=== PATIENT | female | born 1985 | race Caucasian/White ===

== ENCOUNTER 2017-05-25 01:09 | Emergency (ER) | payer OTHER ==
[2017-05-25 01:22] VITALS: BP 128/77; PULSE 69; RESP 18; TEMP 97.9; O2SAT 100
== END 2017-05-25 01:35 | disposition home or self-care (01) | DRG 951 ==
LOC: ED 01:09
DX: Z71.1 Person with feared health complaint in whom no diagnosis is made (principal)
CPT/HCPCS: 99282